=== PATIENT | male | born 1990 | race Caucasian/White ===

== ENCOUNTER 2024-11-01 15:18 | Inpatient (IN) | payer OTHER ==
[~2024-11-01] VITALS: Ht 180.3 cm; Wt 82.0 kg
[2024-11-01] MEDS: HYDROCODONE/ACETAMINOPHEN 5-325 MG TABLET PO ONE ×3 (17:40→21:02)
[2024-11-01] MEDS: LIDOCAINE 1% 10 ML VIAL ID ONE (17:40)
[2024-11-01] MEDS: POVIDONE-IODINE 10% 15 ML SOLUTION UD TP ONE (17:40)
[2024-11-01 18:15] LABS: PLATELET COUNT (AUTO) 255 K/uL (150-450); RED BLOOD CELL COUNT(AUTO) 5.29 MIL/uL (4.50-5.90); RED CELL DISTRIBUTION WIDTH 14.5 % (11.5-14.5); WHITE BLOOD COUNT (AUTO) 5.0 K/uL (4.5-11.0)
[2024-11-01 18:27] LABS: CALCIUM, TOTAL 9.1 mg/dL (8.8-10.5); CREATININE 0.75 mg/dL (0.60-1.30); GLOMERULAR FILTR. RATE CALC > 60 mL/min (>60); GLUCOSE,RANDOM 85 mg/dL (70-110); SODIUM SERUM 142 mmol/L (136-145); UREA NITROGEN, BLOOD 15 mg/dL (7-18)
[2024-11-01] MEDS: CefTRIAXone 1 GM/DEXTROSE 50 ML IV ONE (18:32)
[2024-11-01 18:37] LABS: ASPARTATE AMINOTRANSFERASE 22 U/L (15-37); TOTAL PROTEIN, SERUM 7.9 g/dL (6.4-8.2)
[2024-11-01] MEDS ORDERED: ONDANSETRON HCL 4 MG/2 ML VIAL IVP PRN (19:00)
[2024-11-01] MEDS ORDERED: IOHEXOL 350 MG/ML 100 ML VIAL ONE (19:18)
[2024-11-01] MEDS ORDERED: SODIUM CHLORIDE 0.9% 100 ML ONE (19:18)
[2024-11-01] MEDS ORDERED: 0.9% SODIUM CHLORIDE 10 ML SYRINGE IVP ONE (19:19)
[2024-11-01 19:33] LABS: C-REACTIVE PROTEIN QUANT 4.18 mg/dL (0.00-0.30)
[2024-11-01] MEDS: VANCOMYCIN 1.25 GM/WATER(PEG) 250 ML IV ONE (19:49)
[2024-11-01] MEDS: DOCUSATE SODIUM 100 MG CAPSULE PO SCH (20:03)
[2024-11-01 21:55] VITALS: BP 116/68; PULSE 79; RESP 18; TEMP 97.2; O2SAT 97
[2024-11-01] MEDS ORDERED: SODIUM CHLORIDE 0.9% 500 ML IV ONE (23:14)
[2024-11-01] MEDS: HEPARIN SODIUM,PORCINE 5,000 UNITS/ML VIAL SQ SCH (23:21)
[2024-11-01] MEDS: VANCOMYCIN 1.25 GM/WATER(PEG) 250 ML IV SCH (23:22)
[2024-11-02] MEDS: PIPERACILLIN/TAZO 3.375 GM/D5W 50 ML IV SCH (05:01)
[2024-11-02 05:07] VITALS: BP 110/66; PULSE 81; RESP 18; TEMP 97.7; O2SAT 100
[2024-11-02 06:39] LABS: PLATELET COUNT (AUTO) 248 K/uL (150-450); RED BLOOD CELL COUNT(AUTO) 4.84 MIL/uL (4.50-5.90); RED CELL DISTRIBUTION WIDTH 14.7 % (11.5-14.5); WHITE BLOOD COUNT (AUTO) 5.4 K/uL (4.5-11.0)
[2024-11-02 06:50] LABS: CALCIUM, TOTAL 8.5 mg/dL (8.8-10.5); CREATININE 0.75 mg/dL (0.60-1.30); GLOMERULAR FILTR. RATE CALC > 60 mL/min (>60); GLUCOSE,RANDOM 87 mg/dL (70-110); SODIUM SERUM 138 mmol/L (136-145); UREA NITROGEN, BLOOD 10 mg/dL (7-18)
[2024-11-02 08:15] VITALS: BP 100/62; PULSE 72; RESP 20; TEMP 98.4; O2SAT 97
[2024-11-02 08:35] LABS: RBC MORPHOLOGY COMMENT ABNORMAL RBC MORPH
[2024-11-02] MEDS: ACETAMINOPHEN 325 MG TABLET PO PRN (09:17)
[2024-11-02 15:51] VITALS: BP 107/58; PULSE 73; RESP 18; TEMP 98.1; O2SAT 98
[2024-11-02 21:09] VITALS: BP 114/70; PULSE 80; RESP 18; TEMP 98.1; O2SAT 99
[2024-11-03 04:02] VITALS: BP 104/67; PULSE 77; RESP 18; TEMP 98.4; O2SAT 98
[2024-11-03 06:34] LABS: CALCIUM, TOTAL 8.5 mg/dL (8.8-10.5); CREATININE 0.67 mg/dL (0.60-1.30); GLOMERULAR FILTR. RATE CALC > 60 mL/min (>60); GLUCOSE,RANDOM 98 mg/dL (70-110); SODIUM SERUM 138 mmol/L (136-145); UREA NITROGEN, BLOOD 11 mg/dL (7-18)
[2024-11-03 08:10] VITALS: BP 104/66; PULSE 55; RESP 18; TEMP 98.8; O2SAT 98
[2024-11-03 08:13] LABS: RED BLOOD CELL COUNT(AUTO) 4.85 MIL/uL (4.50-5.90); RED CELL DISTRIBUTION WIDTH 14.4 % (11.5-14.5); WHITE BLOOD COUNT (AUTO) 4.6 K/uL (4.5-11.0)
[2024-11-03 08:30] LABS: PLATELET COUNT (AUTO) 273 K/uL (150-450); RBC MORPHOLOGY COMMENT ABNORMAL RBC MORPH
[2024-11-03] MEDS ORDERED: GADOTERATE MEGLUMINE 10 MMOL/20 ML VIAL IVP ONE (10:31)
[2024-11-03] MEDS: LACTULOSE 20 GM/30 ML SOLUTION UDCUP PO SCH (16:06)
[2024-11-03 19:45] VITALS: BP 101/52; PULSE 80; RESP 18; TEMP 98.2; O2SAT 100
[2024-11-04 05:38] VITALS: BP 113/70; PULSE 72; RESP 20; TEMP 97.9; O2SAT 98
[2024-11-04 06:10] LABS: PLATELET COUNT (AUTO) 268 K/uL (150-450); RED BLOOD CELL COUNT(AUTO) 5.16 MIL/uL (4.50-5.90); RED CELL DISTRIBUTION WIDTH 14.5 % (11.5-14.5); WHITE BLOOD COUNT (AUTO) 5.1 K/uL (4.5-11.0)
[2024-11-04 06:28] LABS: CALCIUM, TOTAL 8.9 mg/dL (8.8-10.5); CREATININE 0.76 mg/dL (0.60-1.30); GLOMERULAR FILTR. RATE CALC > 60 mL/min (>60); GLUCOSE,RANDOM 94 mg/dL (70-110); SODIUM SERUM 138 mmol/L (136-145); UREA NITROGEN, BLOOD 13 mg/dL (7-18)
[2024-11-04 06:40] LABS: RBC MORPHOLOGY COMMENT ABNORMAL RBC MORPH
[2024-11-04 08:00] VITALS: BP 117/63; PULSE 63; RESP 19; TEMP 97.9; O2SAT 96
[2024-11-04] MEDS ORDERED: LACTULOSE 20 GM/30 ML SOLUTION UDCUP PO PRN (15:15)
[2024-11-04 20:03] VITALS: BP 110/61; PULSE 82; RESP 18; TEMP 98.1; O2SAT 97
[2024-11-05 05:51] VITALS: BP 115/69; PULSE 71; RESP 18; TEMP 97.5; O2SAT 95
[2024-11-05 07:00] LABS: PLATELET COUNT (AUTO) 274 K/uL (150-450); RED BLOOD CELL COUNT(AUTO) 5.17 MIL/uL (4.50-5.90); RED CELL DISTRIBUTION WIDTH 14.0 % (11.5-14.5); WHITE BLOOD COUNT (AUTO) 4.7 K/uL (4.5-11.0)
[2024-11-05 07:14] LABS: CALCIUM, TOTAL 9.0 mg/dL (8.8-10.5); CREATININE 0.80 mg/dL (0.60-1.30); GLOMERULAR FILTR. RATE CALC > 60 mL/min (>60); GLUCOSE,RANDOM 93 mg/dL (70-110); SODIUM SERUM 139 mmol/L (136-145); UREA NITROGEN, BLOOD 12 mg/dL (7-18)
[2024-11-05 08:04] VITALS: BP 113/70; PULSE 71; RESP 18; TEMP 97.3; O2SAT 98
[2024-11-05] MEDS ORDERED: SODIUM CHLORIDE 0.9% 500 ML IV ONE (13:57)
[2024-11-05 19:20] VITALS: BP 109/60; PULSE 67; RESP 18; TEMP 98.2; O2SAT 97
[2024-11-06 04:27] VITALS: BP 125/66; PULSE 68; RESP 18; TEMP 97.9; O2SAT 96
[2024-11-06 05:56] LABS: CALCIUM, TOTAL 8.9 mg/dL (8.8-10.5); CREATININE 0.74 mg/dL (0.60-1.30); GLOMERULAR FILTR. RATE CALC > 60 mL/min (>60); GLUCOSE,RANDOM 102 mg/dL (70-110); SODIUM SERUM 141 mmol/L (136-145); UREA NITROGEN, BLOOD 13 mg/dL (7-18)
[2024-11-06 08:03] VITALS: BP 111/71; PULSE 77; RESP 18; TEMP 98.1; O2SAT 96
[2024-11-06] MEDS: VANCOMYCIN 1GM/WATER(PEG/NADA) 200 ML IV SCH (15:40)
[2024-11-06 16:03] VITALS: BP 115/71; PULSE 74; RESP 18; TEMP 98.2; O2SAT 100
[2024-11-06 19:36] VITALS: BP 116/71; PULSE 85; RESP 18; TEMP 97.9; O2SAT 97
[2024-11-07 04:23] VITALS: BP 128/67; PULSE 60; RESP 18; TEMP 98.1; O2SAT 97
[2024-11-07 06:09] LABS: CALCIUM, TOTAL 8.6 mg/dL (8.8-10.5); CREATININE 0.74 mg/dL (0.60-1.30); GLOMERULAR FILTR. RATE CALC > 60 mL/min (>60); GLUCOSE,RANDOM 96 mg/dL (70-110); SODIUM SERUM 138 mmol/L (136-145); UREA NITROGEN, BLOOD 12 mg/dL (7-18)
[2024-11-07 08:07] VITALS: BP 116/72; PULSE 74; RESP 18; TEMP 98.1; O2SAT 98
[2024-11-07 19:25] VITALS: BP 113/75; PULSE 96; RESP 18; TEMP 97.5; O2SAT 96
[2024-11-08 04:30] VITALS: BP 111/70; PULSE 77; RESP 18; TEMP 98.2; O2SAT 97
[2024-11-08 07:07] LABS: CALCIUM, TOTAL 8.4 mg/dL (8.8-10.5); CREATININE 0.70 mg/dL (0.60-1.30); GLOMERULAR FILTR. RATE CALC > 60 mL/min (>60); GLUCOSE,RANDOM 89 mg/dL (70-110); SODIUM SERUM 139 mmol/L (136-145); UREA NITROGEN, BLOOD 10 mg/dL (7-18)
[2024-11-08 08:00] VITALS: BP 111/76; PULSE 74; RESP 18; TEMP 97.9; O2SAT 97
[2024-11-08 19:16] VITALS: BP 115/65; PULSE 83; RESP 18; TEMP 98.4; O2SAT 98
== END 2024-11-08 21:30 | disposition short-term general hospital (02) | DRG 603 ==
LOC: EMS 15:18 → EDH 18:49 → 6N 21:30
PROVIDERS: ADMIT Internal Medicine; ATTEND Internal Medicine
PROC: 0H98XZZ Drainage of Buttock Skin, External Approach (ICD-10-PCS; principal; 2024-11-01)
DX: L03.317 Cellulitis of buttock (principal); N41.2 Abscess of prostate; L02.31 Cutaneous abscess of buttock; R00.0 Tachycardia, unspecified; R79.82 Elevated C-reactive protein (CRP); Z90.5 Acquired absence of kidney
CPT/HCPCS: 72197; 74177; 80048; 80053; 80202; 83735; 85025; 86140; 87040; 87070; 87186; 87205; 96365; 96366; 96367; 99285; J0696; J1644; J2543; J3490; J7040; J7050; 36415-L1; 36415-TC